=== PATIENT | female | born 1985 | race Caucasian/White ===

== ENCOUNTER 2016-07-27 21:23 | Outpatient (CLI) | payer BC ==
[~2016-07-27] VITALS: Ht 172.7 cm; Wt 119.0 kg
[2016-07-27 21:41] VITALS: BP 99/65
[2016-07-28] MEDS ORDERED: PRENATAL TABLE1 EAC3 PO (12:27)
[2016-07-28] MEDS ORDERED: CLARITIN,ALAVAR10 MG PO (12:28)
== END 2016-07-27 22:30 | disposition home or self-care (01) ==
LOC: LDRP-OP 21:23 → 2WEST 21:29 → LDRP-OP 09-15 15:52
DX: O36.8130 Decreased fetal movements, third trimester, not applicable or unspecified (principal); O40.3XX0 Polyhydramnios, third trimester, not applicable or unspecified; Z3A.37 37 weeks gestation of pregnancy
CPT/HCPCS: 59025; G0378

== ENCOUNTER 2016-07-28 11:58 | Outpatient (CLI) | payer BC ==
[~2016-07-28] VITALS: Ht 170.2 cm; Wt 118.6 kg
[2016-07-28 12:17] VITALS: BP 119/72
[2016-07-28] MEDS ORDERED: PRENATAL TABLE1 EAC3 PO (12:27)
[2016-07-28] MEDS ORDERED: CLARITIN,ALAVAR10 MG PO (12:28)
== END 2016-07-28 13:25 | disposition home or self-care (01) ==
LOC: LDRP-OP 11:58 → 2WEST 11:59 → LDRP-OP 09-15 22:45
DX: O36.8130 Decreased fetal movements, third trimester, not applicable or unspecified (principal); Z3A.37 37 weeks gestation of pregnancy
CPT/HCPCS: 59025; G0378

== ENCOUNTER 2016-08-02 01:53 | Outpatient (CLI) | payer BC ==
[~2016-08-02 01:53] MED LIST: CLARITIN,ALAVAR10 MG PO; PRENATAL TABLE1 EAC3 PO
[2016-08-02 02:13] VITALS: BP 119/78
[2016-08-02 03:28] VITALS: BP 113/73
== END 2016-08-02 04:20 | disposition home or self-care (01) ==
LOC: LDRP-OP 01:53 → 2WEST 01:54 → LDRP-OP 09-15 13:54
DX: O47.1 False labor at or after 37 completed weeks of gestation (principal); O43.93 Unspecified placental disorder, third trimester; Z3A.37 37 weeks gestation of pregnancy
CPT/HCPCS: 59025; G0378

== ENCOUNTER 2016-08-20 06:43 | Inpatient (IN) | payer BC ==
[2016-08-20] VITALS (23 sets, daily range): BP systolic 87–138; BP diastolic 52–81
[~2016-08-20] VITALS: Ht 170.2 cm; Wt 120.0 kg
[2016-08-20] MEDS ORDERED: IRON325 MG PO (07:38)
[2016-08-20 09:18] LABS: EOSINOPHIL (%) 1.6 % (0-5); EOSINOPHIL COUNT 0.1 K/uL (0-0.3); HEMATOCRIT 32.6 % (36.0-46.0); IMMATURE GRANULOCYTE (%) 0.4 % (0.0-0.7); INSTRUMENT ABS NEUTROPHIL CT 5.6 K/uL; LYMPHOCYTE COUNT 1.3 K/uL (1.0-2.8); MCH 29.1 PG (29.0-34.0); MCHC 32.2 G/DL (30.0-36.0); MCV 90.3 FL (83-99); MEAN PLAT.VOLUME 10.1 uM^3 (9.5-12.4); MONOCYTE COUNT 0.6 K/uL (0-0.8); NEUTROPHIL (%) 72.2 % (45-76); NEUTROPHIL COUNT 5.6 K/uL (1.8-6.4); PLATELET COUNT 247 K/uL (156-360); RBC DIS.WIDTH-CV 14.5 % (11.8-14.6); RBC DIS.WIDTH-SD 47.2 % (39-53); RED BLOOD COUNT 3.61 M/uL (3.80-5.20); WHITE BLOOD COUNT 7.7 K/uL (4.1-10.2)
[2016-08-20] MEDS ORDERED: IBUPROFEN800 MG PO (16:37)
[2016-08-21 03:33] VITALS: BP 115/62
[2016-08-21 22:25] VITALS: BP 125/82
== END 2016-08-22 19:30 | disposition home or self-care (01) | DRG 775 ==
LOC: LDRP-OP 06:43 → 2WEST 06:44 → LDRP-OP 20:43 → 2WEST 08-22 19:30 → LDRP-OP 09-15 04:49
PROVIDERS: Obstetrics & Gynecology
PROC: 3E0S3BZ Introduction of Anesthetic Agent into Epidural Space, Percutaneous Approach (ICD-10-PCS; principal; 2016-08-20)
PROC: 3E0P7GC Introduction of Other Therapeutic Substance into Female Reproductive, Via Natural or Artificial Opening (ICD-10-PCS; principal; 2016-08-20)
PROC: 10E0XZZ Delivery of Products of Conception, External Approach (ICD-10-PCS; principal; 2016-08-20)
DX: O48.0 Post-term pregnancy (principal); Z68.41 Body mass index [BMI] 40.0-44.9, adult; Z37.0 Single live birth; Z3A.40 40 weeks gestation of pregnancy; O70.0 First degree perineal laceration during delivery; E66.9 Obesity, unspecified; O36.63X1 Maternal care for excessive fetal growth, third trimester, fetus 1; O99.214 Obesity complicating childbirth; F41.9 Anxiety disorder, unspecified; O99.344 Other mental disorders complicating childbirth; O69.81X1 Labor and delivery complicated by cord around neck, without compression, fetus 1
CPT/HCPCS: 85025; C1755; J0595; J3010; J7120

== ENCOUNTER 2016-08-26 12:55 | Emergency (ER) | payer BC ==
[~2016-08-26] VITALS: Ht 170.2 cm; Wt 113.8 kg
[~2016-08-26 12:55] MED LIST changes: +IBUPROFEN800 MG PO; +IRON325 MG PO
[2016-08-26 13:40] VITALS: BP 123/80
== END 2016-08-26 14:30 | disposition left against medical advice (07) ==
LOC: EME 12:55
DX: O86.4 Pyrexia of unknown origin following delivery (principal); Z53.21 Procedure and treatment not carried out due to patient leaving prior to being seen by health care provider